=== PATIENT | female | born 1990 | race Two or more races ===

== ENCOUNTER 2019-01-17 05:00 | Inpatient (IN) | payer OTHER ==
[~2019-01-17 05:00] MED LIST: AMPICILLIN - 2 GM in SODIUM CHLORIDE 100 ML IVPB ONE; ELECTROLYTE-148 SOLN 1,000 ML IV SCH
[2019-01-17] MEDS ORDERED: BUTORPHANOL TARTRATE 1 MG/ML VIAL IVPB ONE (05:56)
[2019-01-17] MEDS ORDERED: PROMETHAZINE HCL 25 MG/1 ML VIAL IVPUSH ONE (05:56)
[2019-01-17] MEDS ORDERED: ELECTROLYTE-148 SOLN 1,000 ML IV SCH ×2 (06:00→07:01)
[2019-01-17 06:06] LABS: INR 0.91 (0.83-1.09); PROTHROMBIN TIME (PATIENT) 10.7 SEC (9.7-13.0)
[2019-01-17 06:08] LABS: ACTIVATED PTT 28.8 SECONDS (25.2-36.5)
[2019-01-17 06:15] VITALS: BMI 27.6
--- NOTE | 2019-01-17 06:49 | HP ---
Past Medical History - Admission Chief Complaint: Painful contractions since last night around 1 am. No LOF/VB. +FM History of Present Illness: 28 y/o P2 female with SIUP at 39.4 weeks here in labor. Painful contractions started overnight around 1am, no LOF/VB. +FM. complicated by gestational thrombocytopenia, has seen hematology, platelets are stable. No other issues. X 2 in the past, most recently in 2016. History Source: Patient, Medical Record Limitations to Obtaining History: No Limitations - Past Medical History Cardiovascular: No: HTN Pulmonary: No: Asthma, COPD Hepatobiliary: No: Hepatitis B, Hepatitis C Renal/: No: UTI Reproductive: No: Endometriosis ...: 5 ...Para: 2 ...Term: 2 ...: 0 ...Spon : 1 ...Induced : 1 ...Multiple Gestation: 0 ...LMP: 04/15/18 ... Weeks Gestation by Dates: 39.4 ...EDC by Dates: 01/20/19 Heme/Onc: No: Anemia Infectious Disease: No: HIV, MRSA Psych: No: Anxiety, Bipolar, Depression Endocrine: No: Hyperthyroidism, Hypothyroidism Additional Medical History: Anemia macrocytic. gestational thrombocytopenia - Past Surgical History Past Surgical History: Yes: None Hx Myomectomy: No Hx Transabdominal Cerclage: No - Smoking History Smoking history: Never smoked Have you smoked in the past 12 months: No - Alcohol/Substance Use Hx Alcohol Use: No History of Substance Use: reports: None - Social History History of Recent Travel: No Home Medications - Allergies Allergies/Adverse Reactions: Allergies Allergy/AdvReac Type Severity Reaction Status Date / Time No Known Drug Allergies Allergy Verified 06/26/15 07:05 - Home Medications Home Medications: Ambulatory Orders Vitamins (Sjr) - 1 tab PO DAILY 06/18/16 Family Disease History - Family Disease History Family Disease History: Other: Father (HTN) Review of Systems - Review of Systems Constitutional: reports: No Symptoms Eyes: reports: No Symptoms HENT: reports: No Symptoms Neck: reports: No Symptoms Cardiovascular: reports: No Symptoms Respiratory: reports: No Symptoms Gastrointestinal: reports: Abdominal Pain (with contractions) Genitourinary: reports: No Symptoms Breasts: reports: No Symptoms Reported Musculoskeletal: reports: No Symptoms Integumentary: reports: No Symptoms Neurological: reports: No Symptoms Endocrine: reports: No Symptoms Hematology/Lymphatic: reports: No Symptoms Psychiatric: reports: No Symptoms Physical Exam - Maternity Vital Signs: Vital Signs Temperature 98.2 F 01/17/19 06:00 Pulse Rate 102 H 01/17/19 06:00 Respiratory Rate 20 01/17/19 06:00 Blood Pressure 143/93 01/17/19 06:30 O2 Sat by Pulse Oximetry (%) Constitutional: Yes: Well Nourished, No Distress, Calm Eyes: Yes: Conjunctiva Clear, EOM Intact HENT: Yes: Atraumatic, Normocephalic Neck: Yes: Supple, Trachea Midline Cardiovascular: Yes: Regular Rate and Rhythm Lungs: Clear to auscultation - Abdominal Exam/OB Fundal Height: 40 Number of Fetuses: Single Presentation: Vertex Contractions: Yes Regularity: Regular Intensity: Mod/Strong Heart Rate (range): 150 Category: I Accelerations: Uniform Decelerations: None - Vaginal Exam/OB Dilatation (cm): 5 Effacement (%): 80 Amniotic Membrane Status: Intact Presentation: Vertex/Position Station: -1 - Physical Exam Psychiatric: Yes: Alert, Oriented Hemorrhage Risk Assessment - Risk Factors Medium Risk Factors: Yes: None High Risk Factors: Yes: None Risk Score: 1 Risk Level: Medium Risk Problem List - Problems (1) Gestational thrombocytopenia Code(s): O99.119 - OTH DIS OF BLD/BLD-FORM ORG/IMMUN MECHNSM COMP PREG,UNSP TRI ; D69.6 - THROMBOCYTOPENIA, UNSPECIFIED (2) GBS (group B Streptococcus carrier), +RV culture, currently Code(s): O99.820 - STREPTOCOCCUS B CARRIER STATE COMPLICATING Assessment/Plan 28 y/o with SIUP at 39.4 weeks, labor admit to L&D check platelets, if stable will get epidural GBS positive, ampicillin expectant management for now
[2019-01-17] MEDS ORDERED: FENTANYL/BUPIVACAINE/NS/PF - PCEA - 50 ML DISP.SYRIN EP ONE (07:07)
[2019-01-17 07:33] LABS: BASO % 0.3 % (0-2.0); EOS % 1.2 % (0-4.5); HEMATOCRIT 36.6 % (32.4-45.2); HEMOGLOBIN 12.8 GM/dL (10.7-15.3); LYMPH % 16.8 % (8-40); MCH 33.3 pg (25.7-33.7); MCHC 34.9 g/dl (32.0-36.0); MEAN CELL VOLUME 95.5 fl (80-96); MEAN PLT VOLUME 12.9 fl (7.5-11.1); MONO % 6.6 % (3.8-10.2); NEUT % 75.1 % (42.8-82.8); PLATELET COUNT 108 K/MM3 (134-434); RBC 3.84 M/mm3 (3.60-5.2); RDW 12.8 % (11.6-15.6)
[2019-01-17] MEDS ORDERED: OXYTOCIN 20 UNITS in 0.9% NS 20 UNIT/1,000 ML INFUS.BAG IV ONE (08:35)
[2019-01-17] MEDS ORDERED: AMPICILLIN SODIUM 1 GM VIAL ONE (08:35)
[2019-01-17 08:44] LABS: RETICULOCYTES 1.68 % (0.5-1.5)
[2019-01-17] MEDS ORDERED: NALOXONE HCL 0.4 MG/ML VIAL IVPUSH PRN (08:48)
[2019-01-17] MEDS ORDERED: AMPICILLIN - 1 GM in SODIUM CHLORIDE 100 ML IVPB SCH (09:00)
[2019-01-17] MEDS ORDERED: FENTANYL/BUPIVACAINE/NS/PF - PCEA - 50 ML DISP.SYRIN EP SCH (09:00)
--- NOTE | 2019-01-17 09:29 | PN ---
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
[2019-01-17] MEDS ORDERED: BENZOCAINE 20% 57 GM BOTTLE TP PRN (09:31)
[2019-01-17] MEDS ORDERED: BENZOCAINE 28 GM HEMORRHOIDAL OINTMENT TP PRN (09:31)
[2019-01-17] MEDS ORDERED: WITCH HAZEL 50% (TUCKS) 40 PAD/JAR PAD TP PRN (09:31)
[2019-01-17] MEDS ORDERED: BISACODYL 10 MG SUPP.RECT RC PRN (09:31)
[2019-01-17] MEDS ORDERED: METHYLERGONOVINE MALEATE 0.2 MG/1 ML AMP IM PRN (09:31)
[2019-01-17] MEDS ORDERED: OXYTOCIN 20 UNITS in 0.9% NS 20 UNIT/1,000 ML INFUS.BAG IV SCH (09:45)
[2019-01-17 10:07] LABS: CO2 19 mmol/L (21-32); CREATININE 0.6 mg/dL (0.55-1.3)
[2019-01-17 10:20] LABS: ANION GAP 9 MMOL/L (8-16); BLOOD UREA NITROGEN 7 mg/dL (7-18); CALCIUM 8.9 mg/dL (8.5-10.1); CHLORIDE 107 mmol/L (98-107); GAMMA GLUTAMYL TRANSPEPTIDASE 21 U/L (5-85); GLUCOSE,RANDOM 88 mg/dL (74-106); POTASSIUM 3.7 mmol/L (3.5-5.1); SGOT/AST 16 U/L (15-37); SGPT/ALT 18 U/L (13-61); SODIUM 135 mmol/L (136-145); URIC ACID 4.8 mg/dL (2.6-7.2)
[2019-01-17] MEDS: IBUPROFEN 600 MG TABLET (FP) PO PRN (20:45)
[2019-01-17] MEDS: ACETAMINOPHEN 325 MG TABLET (FP) PO PRN (20:46)
[2019-01-18 07:39] LABS: BASO % 0.4 % (0-2.0); EOS % 1.8 % (0-4.5); HEMATOCRIT 35.6 % (32.4-45.2); HEMOGLOBIN 12.3 GM/dL (10.7-15.3); LYMPH % 17.5 % (8-40); MCH 33.5 pg (25.7-33.7); MCHC 34.6 g/dl (32.0-36.0); MEAN CELL VOLUME 96.8 fl (80-96); MONO % 5.8 % (3.8-10.2); NEUT % 74.5 % (42.8-82.8); PLATELET COUNT 96 K/MM3 (134-434); RBC 3.68 M/mm3 (3.60-5.2); RDW 12.7 % (11.6-15.6); WHITE BLOOD COUNT 9.5 K/mm3 (4.0-10.0)
--- NOTE | 2019-01-18 09:05 | PN ---
Post Progress Note - Subjective Subjective: Pt seen/evaluated and doing well. Pain controlled, VB minimal. No CP/SOB/F/C/ [place]. Attempting to breastfeed. Resting well in bed upon my entry today. Voiding, tolerating diet. Type of Delivery: Vital Signs: Vital Signs Temperature 98.7 F 01/18/19 08:03 Pulse Rate 84 01/18/19 08:03 Respiratory Rate 20 01/18/19 08:03 Blood Pressure 132/82 01/18/19 08:03 O2 Sat by Pulse Oximetry (%) 99 01/17/19 09:00 Uterus: Yes: Fundus Firm Abdomen/GI: Yes: Abdomen soft Lochia: Yes: Rubra Lochia, amount: Small Extremities: Yes: Calves non-tender. No: Edema Perineum: Yes: Intact Activity: Ambulating - Labs Labs: CBC WBC 9.5 K/mm3 (4.0-10.0) 01/18/19 06:50 RBC 3.68 M/mm3 (3.60-5.2) 01/18/19 06:50 Hgb 12.3 GM/dL (10.7-15.3) 01/18/19 06:50 Hct 35.6 % (32.4-45.2) 01/18/19 06:50 MCV 96.8 fl (80-96) H 01/18/19 06:50 MCH 33.5 pg (25.7-33.7) 01/18/19 06:50 MCHC 34.6 g/dl (32.0-36.0) 01/18/19 06:50 RDW 12.7 % (11.6-15.6) 01/18/19 06:50 Plt Count 96 K/MM3 (134-434) L 01/18/19 06:50 MPV 12.0 fl (7.5-11.1) H 01/18/19 06:50 Absolute Neuts (auto) 7.1 K/mm3 (1.5-8.0) 01/18/19 06:50 Neutrophils % 74.5 % (42.8-82.8) 01/18/19 06:50 Lymphocytes % 17.5 % (8-40) 01/18/19 06:50 Monocytes % 5.8 % (3.8-10.2) 01/18/19 06:50 Eosinophils % 1.8 % (0-4.5) 01/18/19 06:50 Basophils % 0.4 % (0-2.0) 01/18/19 06:50 Nucleated RBC % 0 % (0-0) 01/18/19 06:50 Retic Count 1.68 % (0.5-1.5) H 01/17/19 05:35 Problem List - Problems (1) Gestational thrombocytopenia Code(s): O99.119 - OTH DIS OF BLD/BLD-FORM ORG/IMMUN MECHNSM COMP PREG,UNSP TRI ; D69.6 - THROMBOCYTOPENIA, UNSPECIFIED (2) GBS (group B Streptococcus carrier), +RV culture, currently Code(s): O99.820 - STREPTOCOCCUS B CARRIER STATE COMPLICATING Assessment/Plan Pt doing well PLatelet 96 this a.m., will repeat at post visit per heme/onc recommendations to be sure resolution regular diet PO pain meds routine care
[2019-01-18] MEDS: IBUPROFEN 600 MG TABLET (FP) PO PRN (09:20)
[2019-01-18] MEDS: ACETAMINOPHEN 325 MG TABLET (FP) PO PRN ×2 (09:20→20:58)
[2019-01-18] MEDS ORDERED: PRENATAL VITAMINS W/ FOLIC ACID TABLET (FP) PO SCH (10:00)
[2019-01-18] MEDS ORDERED: SENNOSIDES/DOCUSATE COMBO (SENNA PLUS) TABLET (UD) PO PRN (22:00)
[2019-01-19] MEDS: IBUPROFEN 600 MG TABLET (FP) PO PRN (04:43)
[2019-01-19] MEDS: ACETAMINOPHEN 325 MG TABLET (FP) PO PRN (04:43)
--- NOTE | 2019-01-19 09:16 | DS ---
Physical Exam-RESIDENTIAL ROOFER HELPER Vital Signs: Vital Signs Temperature 98.0 F 01/18/19 22:00 Pulse Rate 82 01/18/19 22:00 Respiratory Rate 18 01/18/19 22:00 Blood Pressure 134/78 01/18/19 22:00 O2 Sat by Pulse Oximetry (%) 99 01/17/19 09:00 Constitutional: Yes: Well Nourished, No Distress Eyes: Yes: Conjunctiva Clear Neck: Yes: Supple Cardiovascular: Yes: Regular Rate and Rhythm Respiratory: Yes: Regular Gastrointestinal: Yes: Normal Bowel Sounds Vaginal Exam: Yes: Bleeding (normal lochia rubra) ....Post : Yes: Uterus firm, Uterus non-tender Psychiatric: Yes: Alert, Oriented Labs: CBC, BMP 01/18/19 06:50 01/17/19 05:35 Delivery - Delivery Vaginal Delivery: No Problems Type of Anesthesia: Epidural Episiotomy/Laceration: None EBL (cc): 250 Delivery, Single - Stages of Labor Date 1st Stage Initiatied: 01/17/19 Time 1st Stage Initiated: 02:00 Date 2nd Stage Initiated: 01/17/19 Time 2nd Stage Initiated: 09:00 Date of Delivery: 01/17/19 Time of Delivery: 09:14 Time Placenta Delivered: 09:17 Placenta: Yes: Spontaneous - Condition of Partition Setter/Template Checker Present: No Gender: Female Weight: 6 lb 4 oz Position: Right, OA Total Hours ROM (Hrs/Mins): 57M - 1 Minute Total Score: 9 5 Minutes Total Score: 9 - Feeding Plan Initial Plan: Elected not to breastfeed exclusively throughout hospitalization Discharge Summary Reason For Visit: LABOR Current Active Problems GBS (group B Streptococcus carrier), +RV culture, currently (Acute) Hospital Course: Pt admitted on 01/17 in labor, underwent normal on that date. She has known gestational thrombocytopenia, platelets monitored throughout admission and stable. She otherwise underwent uncomplicated post course and was discharged home on post day 2. - Instructions - Home Medications Comprehensive Discharge Medication List: Ambulatory Orders Vitamins (Sjr) - 1 tab PO DAILY 06/18/16
[2019-01-19 13:06] VITALS: BP 131/75; PULSE 84; TEMP 97.6
== END 2019-01-19 13:30 | disposition home or self-care (01) | DRG 807 ==
LOC: JLDR 05:00 → J3W 10:45
PROVIDERS: ADMIT Obstetrics & Gynecology; ATTEND Obstetrics & Gynecology
PROC: 10E0XZZ Delivery of Products of Conception, External Approach (ICD-10-PCS; principal; 2019-01-17)
DX: O99.12 Other diseases of the blood and blood-forming organs and certain disorders involving the immune mechanism complicating childbirth (principal); Z37.0 Single live birth; D69.6 Thrombocytopenia, unspecified; O99.824 Streptococcus B carrier state complicating childbirth; Z3A.39 39 weeks gestation of pregnancy
CPT/HCPCS: 36415; 59409; 80048; 82977; 83010; 84450; 84460; 84550; 85025; 85032; 85044; 85610; 85730; 86593; 86850; 86900; 86901